=== PATIENT | male | born 1970 | race Hispanic/Latino ===

== ENCOUNTER 2019-10-11 12:30 | Emergency (ER) | payer SELFPAY ==
--- NOTE | 2019-10-11 14:19 | RAD REPORT ---
EXAM DESCRIPTION: RAD - Hand Right 3 View - 10/11/2019 2:13 pm CLINICAL HISTORY: PAIN COMPARISON: No comparisons FINDINGS: Comminuted fracture is present involving the distal phalanx of the thumb. No additional fr acture.
--- NOTE | 2019-10-11 14:31 | EDPHYS ---
Physician Documentation [facility] Name: Joel Ellison Age: 49 yrs Sex: Male : 1970 Arrival Date: 10/11/2019 Time: 12:31 Bed 15 Private MD: ED Physician Tim Urena HPI: 10/10 15:34 This 49 yrs old Male presents to ER via Ambulatory with complaints of Finger kb Injury. 15:34 The patient or guardian reports a contusion, pain, swelling, tenderness. The complaints kb affect the right thumb. Context: The problem was sustained at home, resulted from a crush injury, hammer. Onset: The symptoms/episode began/occurred 4 day(s) ago. Modifying factors: The symptoms are alleviated by nothing, the symptoms are aggravated by nothing. Associated signs and symptoms: The patient has no apparent associated signs or symptoms. Severity of symptoms: At their worst the symptoms were moderate, in the emergency department the symptoms are unchanged. The patient has not experienced similar symptoms in the past. The patient has not recently seen a physician. Pt reports he smashed his right thumb with a hammer 4 days ago. c/o swelling, pain and bruising. Historical: - Allergies: 12:43 No Known Allergies; hb - PSHx: 12:43 None; hb - Immunization history:: Adult Immunizations up to date. - Social history:: Smoking status: Patient denies any tobacco usage or history of. Patient uses alcohol, only on a social basis. Patient/guardian denies using street drugs. ROS: 15:33 Constitutional: Negative for fever, chills, and weight loss, Cardiovascular: Negative kb for chest pain, palpitations, and edema, Respiratory: Negative for shortness of breath, cough, wheezing, and pleuritic chest pain, Abdomen/GI: Negative for abdominal pain, nausea, vomiting, diarrhea, and constipation, Back: Negative for injury and pain, Neuro: Negative for headache, weakness, numbness, tingling, and seizure. 15:33 MS/extremity: Positive for ecchymosis, pain, swelling, tenderness, of the right thumb. Exam: 15:32 Constitutional: This is a well developed, well nourished patient who is awake, alert, kb and in no acute distress. Head/Face: Normocephalic, atraumatic. Chest/axilla: Normal chest wall appearance and motion. Nontender with no deformity. No lesions are appreciated. Cardiovascular: Regular rate and rhythm with a normal S1 and S2. No gallops, murmurs, or rubs. Normal PMI, no JVD. No pulse deficits. Respiratory: Lungs have equal breath sounds bilaterally, clear to auscultation and percussion. No rales, rhonchi or wheezes noted. No increased work of breathing, no retractions or nasal flaring. Abdomen/GI: Soft, non-tender, with normal bowel sounds. No distension or tympany. No guarding or rebound. No evidence of tenderness throughout. Neuro: Awake and alert, GCS 15, oriented to person, place, time, and situation. Cranial nerves II-XII grossly intact. Motor strength 5/5 in all extremities. Sensory grossly intact. Cerebellar exam normal. Normal gait. 15:32 Musculoskeletal/extremity: Extremities: grossly normal except: noted in the right thumb: contusion, ecchymosis, pain, swelling, tenderness, ROM: intact in all extremities, Circulation is intact in all extremities. Sensation intact. Nails: Subungual hematoma, of the right thumbnail. Vital Signs: 12:42 BP 149 / 90; Pulse 84; Resp 16; Temp 98.2; Pulse Ox 98% ; hb MDM: 12:54 Patient medically screened. kb 14:29 Data reviewed: vital signs, nurses notes. Data interpreted: Pulse oximetry: on room air kb is 98 %. Interpretation: normal. Counseling: I had a detailed discussion with the patient and/or guardian regarding: the historical points, exam findings, and any diagnostic results supporting the discharge/admit diagnosis, radiology results, the need for outpatient follow up, a orthopedic surgeon, to return to the emergency department if symptoms worsen or persist or if there are any questions or concerns that arise at home. 10/10 13:33 Order name: Hand Right 3 View XRAY; Complete Time: 14:24 kb 10/10 14:29 Order name: Finger Splint; Complete Time: 14:40 kb Administered Medications: No medications were administered Disposition: 15:22 Co-signature as Attending Physician, Tim Urena MD I agree with the assessment and kdr plan of care. Disposition: 10/11/19 14:30 Discharged to Home. Impression: Displaced fracture of distal phalanx of right thumb. - Condition is Stable. - Discharge Instructions: Finger Fracture, [id number]. - Prescriptions for Ibuprofen 800 mg Oral Tablet - take 1 tablet by ORAL route every 8 hours As needed take with food; 30 tablet. - Medication Reconciliation Form, Thank You Letter, Antibiotic Education, Prescription Opioid Use form. - Follow up: Emergency Department; When: As needed; Reason: Worsening of condition. Follow up: Private Physician; When: 2 - 3 days; Reason: Recheck today's complaints, Continuance of care, Re-evaluation by your physician. Signatures: Dispatcher [employer] EDMS Nirmala Denis, DIRECTOR OF STUDENT FINANCIAL SERVICES-C DIRECTOR OF STUDENT FINANCIAL SERVICES-Olga Bailey RN RN Tim Liu MD MD [facility] Alexandra Leon RN RN Corrections: (The following items were deleted from the chart) 15:18 14:30 10/11/2019 14:30 Discharged to Home. Impression: Displaced fracture of distal sv phalanx of right thumb. Condition is Stable. Forms are Medication Reconciliation Form, Thank You Letter, Antibiotic Education, Prescription Opioid Use. Follow up: Emergency Department; When: As needed; Reason: Worsening of condition. Follow up: Private Physician; When: 2 - 3 days; Reason: Recheck today's complaints, Continuance of care, Re-evaluation by your physician. kb
--- NOTE | 2019-10-11 14:31 | ER ---
Nurse's Notes [facility] Name: Joel Ellison Age: 49 yrs Sex: Male : 1970 Arrival Date: 10/11/2019 Time: 12:31 Bed 15 Private MD: Diagnosis: Displaced fracture of distal phalanx of right thumb Presentation: 10/10 12:42 Chief complaint: Patient states: Right hand 1st digit pain/swelling for 4 days. Hit hb with hammer. Risk Assessment: Do you want to hurt yourself or someone else? Patient reports no desire to harm self or others. 12:42 Method Of Arrival: Ambulatory hb 12:42 Acuity: MARLON 4 hb 12:55 Coronavirus screen: Proceed with normal triage. Patient denies a cough. Patient denies sv shortness of breath or difficulty breathing. Patient denies measured and/or subjective temperature greater than 100.4F prior to today's visit. Patient denies travel on a cruise ship or to a country the [facility] currently lists as an affected area. Patient denies contact with known and/or suspected case of COVID-19. Ebola Screen: No symptoms or risks identified at this time. Initial Sepsis Screen: Does the patient meet any 2 criteria? No. Patient's initial sepsis screen is negative. Does the patient have a suspected source of infection? Yes: Skin breakdown/wound. Onset of symptoms was October 07, 2019. Historical: - Allergies: 12:43 No Known Allergies; hb - PSHx: 12:43 None; hb - Immunization history:: Adult Immunizations up to date. - Social history:: Smoking status: Patient denies any tobacco usage or history of. Patient uses alcohol, only on a social basis. Patient/guardian denies using street drugs. Screenin:46 Abuse screen: Denies threats or abuse. Denies injuries from another. Nutritional sv screening: No deficits noted. Tuberculosis screening: No symptoms or risk factors identified. Fall Risk None identified. Assessment: 12:55 General: Appears in no apparent distress. uncomfortable, well developed, Behavior is sv calm, cooperative, appropriate for age. Pain: Complains of pain in right thumb. Neuro: Level of Consciousness is awake, alert, obeys commands, Oriented to person, place, time, situation, Moves all extremities. Full function Gait is steady. Respiratory: Airway is patent Respiratory effort is even, unlabored, Respiratory pattern is regular, symmetrical. Derm: Skin is intact, Skin is pink, warm \T\ dry. Musculoskeletal: Range of motion: limited in IP of right thumb Swelling present in right thumb. 14:00 Reassessment: Patient appears in no apparent distress at this time. Patient and/or sv family updated on plan of care and expected duration. Pain level reassessed. Patient is alert, oriented x 3, equal unlabored respirations, skin warm/dry/pink. 14:58 Reassessment: Pt waiting for xray films to come and then will be good to go home. sv 15:18 Reassessment: Patient appears in no apparent distress at this time. No changes from sv previously documented assessment. Patient and/or family updated on plan of care and expected duration. Pain level reassessed. Patient is alert, oriented x 3, equal unlabored respirations, skin warm/dry/pink. Vital Signs: 12:42 BP 149 / 90; Pulse 84; Resp 16; Temp 98.2; Pulse Ox 98% ; hb ED Course: 12:31 Patient arrived in ED. as 12:43 Triage completed. hb 12:46 Olga Ovalle, RN is Primary Nurse. sv 12:46 Arm band placed on. sv 12:46 Patient has correct armband on for positive identification. Bed in low position. Call sv light in reach. Door closed. Head of bed elevated. 12:54 Nirmala Denis FNP-C is [facility]. kb 12:54 Tim Urena MD is Attending Physician. kb 13:31 Nurse Practitioner and/or Physician Automatic Blocker to see patient. sv 14:00 X-ray(s) taken. sv 14:13 Hand Right 3 View XRAY In Process Unspecified. EDMS 14:40 Aluminum finger splint applied to palmar aspect of distal phalanx of right thumb. jp3 15:18 No provider procedures requiring assistance completed. Patient did not have IV access sv during this emergency room visit. Administered Medications: No medications were administered Outcome: 14:30 Discharge ordered by . kb 15:18 Patient left the ED. sv 15:18 Discharged to home ambulatory. sv 15:18 Condition: stable 15:18 Discharge instructions given to patient, Instructed on discharge instructions, follow up and referral plans. medication usage, splint care Demonstrated understanding of instructions, follow-up care, medications, splint care, Prescriptions given X 1. Signatures: Dispatcher [employer] Nirmala Muñoz, ORIC CRYPTOZOOLOGIST-Olga Bailey, RN Laura Shirley Heather, RN RN hb Pisarski, Jacob jp3 Corrections: (The following items were deleted from the chart) 12:45 12:42 Chief complaint: Patient states: Right hand 1st digit pain/swelling. [facility]
[2019-10-11 15:25] VITALS: BP 149/90; TEMP 98.2; O2SAT 98
== END 2019-10-11 15:18 | disposition home or self-care (01) ==
LOC: ER 12:30
DX: S62.521A Displaced fracture of distal phalanx of right thumb, initial encounter for closed fracture (principal); W22.8XXA Striking against or struck by other objects, initial encounter; Y93.89 Activity, other specified; Y92.9 Unspecified place or not applicable
CPT/HCPCS: 99283

== ENCOUNTER 2020-11-08 22:40 | Emergency (ER) | payer SELFPAY ==
[2020-11-09] MEDS ORDERED: LIDOCAINE 1% MPF 5 ML VIAL ONE (01:45)
--- NOTE | 2020-11-09 02:10 | EDPHYS ---
Physician Documentation [facility] Name: Joel Ellison Age: 50 yrs Sex: Male : 1970 Arrival Date: 11/08/2020 Time: 22:48 Bed 20 Private MD: ED Physician Marko Duran HPI: 11/09 02:01 This 50 yrs old Male presents to ER via Wheelchair with unknown complaint. pkl 02:01 The patient or guardian reports injury, a laceration, 2.5 cm(s), flap laceration. The pkl complaints affect the distal left index finger. Context: resulted from cut with kitchen knife. Onset: The symptoms/episode began/occurred 4 hour(s) ago. Associated signs and symptoms: The patient has no apparent associated signs or symptoms. Historical: - Allergies: 11/08 23:06 No Known Allergies; em - PMHx: 23:06 None; em - PSHx: 23:06 None; em - Immunization history:: Last tetanus immunization: unknown. - Social history:: Smoking status: Patient denies any tobacco usage or history of. ROS: 11/09 02:01 Eyes: Negative for injury, pain, redness, and discharge, ENT: Negative for injury, pkl pain, and discharge, Neck: Negative for injury, pain, and swelling, Cardiovascular: Negative for chest pain, palpitations, and edema, Respiratory: Negative for shortness of breath, cough, wheezing, and pleuritic chest pain, Abdomen/GI: Negative for abdominal pain, nausea, vomiting, diarrhea, and constipation, Back: Negative for injury and pain, : Negative for injury, bleeding, discharge, and swelling, Neuro: Negative for headache, weakness, numbness, tingling, and seizure. Skin: Positive for laceration(s), of the distal left index finger. Neuro: Negative for altered mental status. Exam: 02:01 Head/Face: Normocephalic, atraumatic. Eyes: Pupils equal round and reactive to light, pkl extra-ocular motions intact. Lids and lashes normal. Conjunctiva and sclera are non-icteric and not injected. Cornea within normal limits. Periorbital areas with no swelling, redness, or edema. ENT: Nares patent. No nasal discharge, no septal abnormalities noted. Tympanic membranes are normal and external auditory canals are clear. Oropharynx with no redness, swelling, or masses, exudates, or evidence of obstruction, uvula midline. Mucous membranes moist. Neck: Trachea midline, no thyromegaly or masses palpated, and no cervical lymphadenopathy. Supple, full range of motion without nuchal rigidity, or vertebral point tenderness. No Meningismus. Chest/axilla: Normal chest wall appearance and motion. Nontender with no deformity. No lesions are appreciated. Cardiovascular: Regular rate and rhythm with a normal S1 and S2. No gallops, murmurs, or rubs. Normal PMI, no JVD. No pulse deficits. Respiratory: Lungs have equal breath sounds bilaterally, clear to auscultation and percussion. No rales, rhonchi or wheezes noted. No increased work of breathing, no retractions or nasal flaring. Abdomen/GI: Soft, non-tender, with normal bowel sounds. No distension or tympany. No guarding or rebound. No evidence of tenderness throughout. Back: No spinal tenderness. No costovertebral tenderness. Full range of motion. Neuro: Awake and alert, GCS 15, oriented to person, place, time, and situation. Cranial nerves II-XII grossly intact. Motor strength 5/5 in all extremities. Sensory grossly intact. Cerebellar exam normal. Normal gait. 02:01 Musculoskeletal/extremity: Extremities: grossly normal except: noted in the distal left index finger: laceration. Vital Signs: 11/08 23:05 BP 133 / 71; Pulse 68; Resp 16; Temp 97.3; Pulse Ox 99% on R/A; em Laceration: 11/09 02:06 Wound Repair of 2.5cm ( 1.0in ) subcutaneous laceration to distal left index finger. pkl Skin/tissue flap noted.. Minimal bleeding noted.. Distal neuro/vascular/tendon intact. Anesthesia: Local anesthetic administered with 3 mls of 1% lidocaine. Wound prep: Extensive cleansing by me. Skin closed with 5 5-0 Prolene using simple sutures and sterile technique. Dressed with Neosporin, pressure dressing. Patient tolerated well. MDM: 01:02 Patient medically screened. pkl 02:06 Data reviewed: vital signs, nurses notes. pkl Administered Medications: 02:11 Drug: Tetanus-Diphtheria Toxoid Adult 0.5 ml {Co Founder: [employer]. Exp: jb4 07/09/2022. Lot #: [id number]. } Route: IM; Site: right deltoid; 02:11 Drug: KeFLEX (cephalexin) 500 mg Route: PO; jb4 02:11 Follow up: Response: Medication administered at discharge. jb4 Disposition Summary: 11/09/20 02:09 Discharge Ordered Location: Home pkl Problem: new pkl Symptoms: have improved pkl Condition: Stable pkl Diagnosis - Laceration distal left index finger pkl Followup: pkl - With: Private Physician - When: 1 week - Reason: Staple/Suture removal, Re-evaluation by your physician Discharge Instructions: - Discharge Summary Sheet pkl Forms: - Medication Reconciliation Form pkl - Thank You Letter pkl - Antibiotic Education pkl - Prescription Opioid Use pkl Prescriptions: - Keflex 750 mg Oral capsule - take 1 capsule by ORAL route 3 times per day for 7 days; 21 capsule; Refills: pkl 0, Product Selection Permitted Signatures: Marko Duran MD MD pkl Kiran Stokes, RN RN Deep Mcdaniel, MICHELLE RN jb4
--- NOTE | 2020-11-09 02:10 | ER ---
Nurse's Notes [facility] Name: Joel Ellison Age: 50 yrs Sex: Male : 1970 Arrival Date: 11/08/2020 Time: 22:48 Bed 20 Private MD: Diagnosis: Laceration distal left index finger Presentation: 11/08 23:05 Chief complaint: Patient states: cut left index finger with a knife about 4 hours ago, em tetanus is not up to date, no bleeding noted in triage. Coronavirus screen: Client denies travel out of the [place] in the last 14 days. Ebola Screen: Patient negative for fever greater than or equal to 101.5 degrees Fahrenheit, and additional compatible Ebola Virus Disease symptoms Patient denies exposure to infectious person. Patient denies travel to an Ebola-affected area in the 21 days before illness onset. No symptoms or risks identified at this time. Initial Sepsis Screen: Does the patient meet any 2 criteria? No. Patient's initial sepsis screen is negative. Does the patient have a suspected source of infection? No. Patient's initial sepsis screen is negative. Risk Assessment: Do you want to hurt yourself or someone else? Patient reports no desire to harm self or others. Onset of symptoms was November 08, 2020. 23:05 Method Of Arrival: Wheelchair em 23:05 Acuity: MARLON 4 em Historical: - Allergies: 23:06 No Known Allergies; em - PMHx: 23:06 None; em - PSHx: 23:06 None; em - Immunization history:: Last tetanus immunization: unknown. - Social history:: Smoking status: Patient denies any tobacco usage or history of. Screenin/19 01:59 Abuse screen: Denies threats or abuse. Nutritional screening: No deficits noted. em Tuberculosis screening: No symptoms or risk factors identified. Fall Risk None identified. Assessment: 11/08 23:05 General: Appears in no apparent distress. comfortable, Behavior is calm, cooperative, ca1 appropriate for age. Pain: Complains of pain in palmar aspect of distal phalanx of left index finger. Neuro: Level of Consciousness is awake, alert, obeys commands, Oriented to person, place, time, situation. Cardiovascular: Capillary refill < 3 seconds Patient's skin is warm and dry. Respiratory: Airway is patent Respiratory effort is even, unlabored, Respiratory pattern is regular, symmetrical. Derm: Skin is intact, is healthy with good turgor, Skin is pink, warm \T\ dry. Wound noted palmar aspect of distal phalanx of left index finger. Musculoskeletal: Capillary refill < 3 seconds, Range of motion: intact in all extremities. Vital Signs: 23:05 BP 133 / 71; Pulse 68; Resp 16; Temp 97.3; Pulse Ox 99% on R/A; em ED Course: 22:48 Patient arrived in ED. em 23:06 Triage completed. em 23:06 Arm band placed on. em 07 01:02 Marko Duran MD is Attending Physician. pkl 01:55 Assist provider with laceration repair on palmar aspect of distal phalanx of left index ca1 finger that was between 2.6 to 7.5 cm using sutures. Set up tray. Performed by Marko Duran MD Dressed with 4X4s, Neosporin, Patient tolerated well. 01:59 Kiran Stokes, RN is Primary Nurse. em 01:59 Patient has correct armband on for positive identification. em 02:22 Patient did not have IV access during this emergency room visit. ca1 Administered Medications: 02:11 Drug: Tetanus-Diphtheria Toxoid Adult 0.5 ml {Youth Specialist: [employer]. Exp: jb4 07/09/2022. Lot #: [id number]. } Route: IM; Site: right deltoid; 02:11 Drug: KeFLEX (cephalexin) 500 mg Route: PO; jb4 02:11 Follow up: Response: Medication administered at discharge. jb4 Outcome: 02:09 Discharge ordered by . pkl 02:21 Discharged to home ambulatory, with family. ca1 02:21 Condition: good 02:21 Discharge instructions given to patient, family, Instructed on discharge instructions, follow up and referral plans. medication usage, wound care, Demonstrated understanding of instructions, follow-up care, medications, wound care, Prescriptions given X 1. 02:22 Patient left the ED. ca1 Signatures: Marko Duran MD MD pkKiran Watson, RN RN em Deep Liu RN RN jb4 Elba Eller RN RN ca1
[2020-11-09] MEDS ORDERED: TETANUS & DIPHTHERIA TOX,ADULT 0.5 ML VIAL ONE (02:28)
[2020-11-09] MEDS ORDERED: CEPHALEXIN 250 MG CAP ONE (02:28)
[2020-11-09 02:30] VITALS: BP 133/71; TEMP 97.3; O2SAT 99
== END 2020-11-09 02:22 | disposition home or self-care (01) ==
LOC: ER 22:40
PROC: 0JQK0ZZ Repair Left Hand Subcutaneous Tissue and Fascia, Open Approach (ICD-10-PCS; principal; 2020-11-09)
DX: S61.211A Laceration without foreign body of left index finger without damage to nail, initial encounter (principal); W26.0XXA Contact with knife, initial encounter; Y92.009 Unspecified place in unspecified non-institutional (private) residence as the place of occurrence of the external cause; Z23 Encounter for immunization
CPT/HCPCS: 90471; 90714; 99283

== ENCOUNTER 2021-02-19 10:12 | Emergency (ER) | payer SELFPAY ==
--- NOTE | 2021-02-19 11:50 | RAD REPORT ---
EXAM DESCRIPTION: CT - Thorax Wo Con - 02/19/2021 10:48 am CLINICAL HISTORY: fall, trauma COMPARISON: No comparisons FINDINGS: Chest Wall: No suspicious thyroid nodules or pathologic lymphadenopathy. Lungs: No acute abnormality. Pleura: No significant effusions or pneumothorax. Mediastinum/constantine: No pathologic lymphadenopathy. Pulmonary arteries/Aorta: Limited evaluation without contrast. No aortic aneurysm. Heart: No significant pericardial effusion. Normal heart size. Upper abdomen: Hepatic steatosis Bones: Nondisplaced sternal fracture at the mid sternum. All CT scans are performed using dose optimization technique as appropriate and may include automated exposure control or mA/KV adjustment according to patient size. IMPRESSION: Nondisplaced sternal fracture. No significant retrosternal hematoma or pericardial effus ion. No pneumothorax.
--- NOTE | 2021-02-19 12:44 | EDPHYS ---
Physician Documentation [facility] Name: Joel Ellison Age: 50 yrs Sex: Male : 1970 Arrival Date: 02/19/2021 Time: 10:15 Bed 14 Private MD: ED Physician Cameron Mora HPI: 02/19 10:36 This 50 yrs old Male presents to ER via Ambulatory with complaints of Fall jmm Injury, Chest Pain From Injury. 10:36 Details of fall: The patient fell from a height, from a ladder. Onset: The jmm symptoms/episode began/occurred acutely, 3 day(s) ago. Associated injuries: The patient sustained injury to the chest, contusion. The patient has not experienced similar symptoms in the past. Patient states that he fell off a ladder hitting his chest against a block of wood. Denies hitting his head, denies shortness of breath, chest pain, abdominal pain, vomiting, back pain.. Historical: - Allergies: 10:20 No Known Allergies; ll1 - PMHx: 10:31 None; ll1 - PSHx: 10:31 None; ll1 - Immunization history:: Adult Immunizations up to date. - Social history:: Smoking status: Patient denies any tobacco usage or history of. - Immunization history: Last tetanus immunization: unknown. ROS: 10:36 Constitutional: Negative for fever, chills, and weight loss, Cardiovascular: Negative jmm for chest pain, palpitations, and edema, Respiratory: Negative for shortness of breath, cough, wheezing, and pleuritic chest pain, Back: Negative for injury and pain, Neuro: Negative for headache, weakness, numbness, tingling, and seizure. 10:36 All other systems are negative. Exam: 10:36 Constitutional: This is a well developed, well nourished patient who is awake, alert, jmm and in no acute distress. Head/Face: atraumatic. Eyes: EOMI, no conjunctival erythema appreciated ENT: Moist Mucus Membranes Neck: Trachea midline, Supple 10:36 Cardiovascular: Regular rate and rhythm. No edema appreciated Respiratory: Normal respirations, no respiratory distress appreciated Abdomen/GI: Non distended, soft Back: Normal ROM Skin: General appearance color normal MS/ Extremity: Moves all extremities, no obvious deformities appreciated, no edema noted to the lower extremities Neuro: Awake and alert, normal gait Psych: Behavior is normal, Mood is normal, Patient is cooperative and pleasant 10:36 Chest/axilla: Palpation: tenderness, that is moderate, of the mid-sternal area. Vital Signs: 10:20 Resp 17; ll1 10:30 BP 183 / 98; Pulse 74; Temp 98.3; Pulse Ox 97% ; ll1 13:02 BP 171 / 83; Pulse 70; Resp 18; Pulse Ox 99% on R/A; jt3 [place] Coma Score: 10:39 Eye Response: spontaneous(4). Verbal Response: oriented(5). Motor Response: obeys jt3 commands(6). Total: 15. Trauma Score (Adult): 10:39 Eye Response: spontaneous(1); Verbal Response: oriented(1); Motor Response: obeys jt3 commands(2); Systolic BP: > 89 mm Hg(4); Respiratory Rate: 10 to 29 per min(4); [place] Score: 15; Trauma Score: 12 MDM: 10:42 Patient medically screened. [facility] 12:42 Data reviewed: vital signs, nurses notes. Counseling: I had a detailed discussion with mari the patient and/or guardian regarding: the historical points, exam findings, and any diagnostic results supporting the discharge/admit diagnosis, radiology results, the need for outpatient follow up, to return to the emergency department if symptoms worsen or persist or if there are any questions or concerns that arise at home. 02/19 10:35 Order name: CT Chest Wo Con; Complete Time: 11:51 [facility] Administered Medications: No medications were administered Disposition Summary: 02/19/21 12:43 Discharge Ordered Location: Home [facility] Condition: Stable [facility] Diagnosis - Fracture of body of sternum, initial encounter for closed fracture [facility] Followup: [facility] - With: Private Physician - When: 2 - 3 days - Reason: Recheck today's complaints, Continuance of care, Re-evaluation by your physician Discharge Instructions: - Discharge Summary Sheet [facility] - Sternal Fracture [facility] Forms: - Medication Reconciliation Form [facility] - Thank You Letter [facility] - Antibiotic Education [facility] - Prescription Opioid Use [facility] Prescriptions: - Ultracet 37.5-325 mg Oral Tablet - take 1 tablet by ORAL route every 6 hours - for up to 5 days; do not exceed 8 jmm tablets per day.; 20 tablet; Refills: 0, Product Selection Permitted Addendum: 02/22/2021 22:57 Co-signature as Attending Physician, Cameron Mora MD. m a2 Signatures: Dispatcher [employer] Vincent Garcia PA PA jmm Alzahri, Mohammad, MD MD ma2 Brennan Hearn RN RN ll1 Sahil Cee RN RN jt3
--- NOTE | 2021-02-19 12:44 | ER ---
Nurse's Notes [facility] Name: Joel Ellison Age: 50 yrs Sex: Male : 1970 Arrival Date: 02/19/2021 Time: 10:15 Bed 14 Private MD: Diagnosis: Fracture of body of sternum, initial encounter for closed fracture Presentation: 02/19 10:20 Chief complaint: Patient states: Fell from a ladder 3 days ago. Hit chest on cabinet. ll1 CP since. No head injury or trauma. Coronavirus screen: Client denies travel out of the [place] in the last 14 days. Ebola Screen: Patient denies travel to an Ebola-affected area in the 21 days before illness onset. Initial Sepsis Screen: Does the patient meet any 2 criteria? No. Patient's initial sepsis screen is negative. Does the patient have a suspected source of infection? Yes: Bone or joint infection. Risk Assessment: Do you want to hurt yourself or someone else? Patient reports no desire to harm self or others. Onset of symptoms was February 16, 2021. 10:20 Method Of Arrival: Ambulatory ll1 10:20 Acuity: MARLON 4 ll1 13:00 Care prior to arrival: None. Mechanism of Injury: No Mechanism of Injury. jt3 Historical: - Allergies: 10:20 No Known Allergies; ll1 - PMHx: 10:31 None; ll1 - PSHx: 10:31 None; ll1 - Immunization history:: Adult Immunizations up to date. - Social history:: Smoking status: Patient denies any tobacco usage or history of. - Immunization history: Last tetanus immunization: unknown. Screenin:39 Abuse screen: Denies threats or abuse. Denies injuries from another. Tuberculosis jt3 screening: No symptoms or risk factors identified. 13:00 Nutritional screening: No deficits noted. Fall Risk None identified. jt3 Primary Survey: 10:39 NO uncontrolled hemorrhage observed. A: Airway: patent. Breathing/Chest: Respiratory jt3 pattern: regular. Circulation: Skin temperature: warm, dry. Disability Alert. Exposure/Environment: A warming method has been applied: A warm blanket has been provided to the patient. 13:00 Reassessment Breathing/Chest Respiratory pattern Regular. jt3 13:00 Reassessment Airway Airway Patent. jt3 Assessment: 10:39 General: Appears in no apparent distress. Behavior is calm, cooperative. Pain: jt3 Complains of pain in chest Pain does not radiate. Pain currently is 5 out of 10 on a pain scale. Quality of pain is described as throbbing, Pain began 2-3 days ago. Musculoskeletal: Pt. reports upper bilateral rib pain after falling down 5 stairs on hitting his chest on piece of wood. Denies LOC or hitting his head. Bruising noticed to sternum. Pt. alert and oriented x4 and endorses pain with coughing. Vital Signs: 10:20 Resp 17; ll1 10:30 BP 183 / 98; Pulse 74; Temp 98.3; Pulse Ox 97% ; ll1 13:02 BP 171 / 83; Pulse 70; Resp 18; Pulse Ox 99% on R/A; jt3 [place] Coma Score: 10:39 Eye Response: spontaneous(4). Verbal Response: oriented(5). Motor Response: obeys jt3 commands(6). Total: 15. Trauma Score (Adult): 10:39 Eye Response: spontaneous(1); Verbal Response: oriented(1); Motor Response: obeys jt3 commands(2); Systolic BP: > 89 mm Hg(4); Respiratory Rate: 10 to 29 per min(4); [place] Score: 15; Trauma Score: 12 ED Course: 10:15 Patient arrived in ED. am2 10:17 Vincent Bonilla PA is PHCP. jmm 10:17 Cameron Mora MD is Attending Physician. jmm 10:20 Arm band placed on Patient placed in an exam room, on a stretcher. ll1 10:21 Triage completed. ll1 10:23 Sahil Cee, MICHELLE is Primary Nurse. jt3 10:39 Patient has correct armband on for positive identification. Bed in low position. Call jt3 light in reach. Side rails up X2. 10:39 Patient maintains SpO2 saturation greater than 95% on room air. jt3 10:48 CT Chest Wo Con In Process Unspecified. EDMS 12:59 No provider procedures requiring assistance completed. IV discontinued. jt3 13:01 Thermoregulation: warm blanket given to patient. jt3 Administered Medications: No medications were administered Intake: 10:39 PO: 0ml; IV: 0ml; Total: 0ml. jt3 Output: 10:39 Urine: 0ml; Total: 0ml. jt3 Outcome: 12:43 Discharge ordered by . mariella 12:59 Discharged to home ambulatory. jt3 12:59 Condition: good 12:59 Discharge instructions given to patient. jt3 13:00 Patient's length of stay was not longer than 2 hours. jt3 13:04 Patient left the ED. jt3 Signatures: Dispatcher [employer] EDMS Vincent Bonilla PA PA jmm Moreno, Amanda am2 Brennan Hearn, RN RN ll1 Sahil Cee RN RN jt3 Corrections: (The following items were deleted from the chart) 13:02 13:01 BP 171 / 83; Pulse 16bpm; Resp 70bpm; Pulse Ox 99% RA; jt3 jt3
[2021-02-19 13:14] VITALS: TEMP 98.3
[2021-02-19 13:15] VITALS: BP 171/83; O2SAT 99
== END 2021-02-19 13:04 | disposition home or self-care (01) ==
LOC: ER 10:12
DX: S22.22XA Fracture of body of sternum, initial encounter for closed fracture (principal); W11.XXXA Fall on and from ladder, initial encounter
CPT/HCPCS: 71250; 99284

== ENCOUNTER 2023-02-08 11:02 | Inpatient (IN) | payer SELFPAY ==
[2023-02-08] MEDS ORDERED: DIAZEPAM 10 MG/2 ML INJ SYRINGE ONE (11:36)
[2023-02-08 11:50] LABS: Absolute Lymphocytes (CBC) 0.6 K/uL (0.7-4.9); Hematocrit 39.8 % (39.6-49.0); Lymphocytes % 9.6 % (15.3-44.8); MCV 101.9 fL (80-100); MPV 8.3 fL (7.6-11.3); Platelets 168 thou/uL (152-406)
[2023-02-08 12:08] LABS: Albumin 3.6 g/dL (3.4-5.0); Bilirubin Total 1.2 mg/dL (0.2-1.0); Magnesium 1.9 mg/dL (1.6-2.4); Potassium 3.3 mEq/L (3.5-5.1); Protein, Total 9.2 g/dL (6.4-8.2); Troponin High Sensitivity 18.3 pg/mL (<58.9)
--- NOTE | 2023-02-08 12:14 | RAD REPORT ---
EXAM DESCRIPTION: CT - CTHCSPWOC - 02/08/2023 11:20 am CLINICAL HISTORY: Trauma, head and neck injury. SEIZURE COMPARISON: No comparisons TECHNIQUE: Axial 5 mm thick images of the head were obtained. Axial 2 mm thick images of the cervical spine were obtained with sagittal and coronal reconstruction images generated and reviewed. All CT scans are performed using dose optimization technique as appropriate and may include automated exposure control or mA/KV adjustment according to patient size. FINDINGS: CT HEAD WITHOUT CONTRAST: No acute hemorrhage, hydrocephalus or extra-axial collection is identified.Small calcifications noted .No areas of brain edema or midline shift. The paranasal sinuses and mastoids are clear.The calvarium is intact. CT CERVICAL SPINE WITHOUT CONTRAST: No fracture or subluxation.Moderate spondylosis C4-5.No prevertebral soft tissues swelling is identif ied. 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 Moderate C4-5 spondylosis.
--- NOTE | 2023-02-08 12:18 | RAD REPORT ---
EXAM DESCRIPTION: RAD - Chest Single View - 02/08/2023 11:27 am CLINICAL HISTORY: seizure Chest pain. COMPARISON: No comparisons FINDINGS: Portable technique limits examination quality. The lungs are grossly clear. The heart is normal in size. No displaced fractures. IMPRESSION: No acute intrathoracic process suspected.
--- NOTE | 2023-02-08 14:10 | EDPHYS ---
Physician Documentation [facility] Name: Joel Ellison Age: 52 yrs Sex: Male : 1970 Arrival Date: 02/08/2023 Time: 11:02 Bed 14 Private MD: ED Physician Kenneth Boucher HPI: 02/08 12:01 This 52 yrs old Male presents to ER via EMS with complaints of ETOH Abuse. rt 12:01 Patient with history of alcohol abuse last having alcohol about 2 to 3 days ago rt presents to the ED with fall at a store with reported 3-minute long seizure. The seizure stopped spontaneously, EMS was called. Patient states that he feels fine, has no complaints and is reportedly at baseline. Denies other acute complaints at this time, symptoms are moderate severity, no other aggravating or alleviating factors.. Historical: - Allergies: 11:12 No Known Allergies; iw - Social history:: Smoking status: unknown Patient uses alcohol, on a daily basis. - Family history:: not pertinent. ROS: 12:01 Constitutional: Negative for fever, chills, and weight loss, Cardiovascular: Negative rt for chest pain, palpitations, and edema, Respiratory: Negative for shortness of breath, cough, wheezing, and pleuritic chest pain, Abdomen/GI: Negative for abdominal pain, nausea, vomiting, diarrhea, and constipation, MS/Extremity: Negative for injury and deformity, Skin: Negative for injury, rash, and discoloration, Psych: Negative for depression, anxiety, suicide ideation, homicidal ideation, and hallucinations, 12:01 Neuro: Positive for seizure activity, Negative for altered mental status, Exam: 12:01 Constitutional: This is a well developed, well nourished patient who is awake, alert, rt and in no acute distress. Head/Face: Normocephalic, atraumatic. Chest/axilla: Normal chest wall appearance and motion. Nontender with no deformity. No lesions are appreciated. Cardiovascular: Regular rate and rhythm with a normal S1 and S2. No gallops, murmurs, or rubs. Normal PMI, no JVD. No pulse deficits. Respiratory: Lungs have equal breath sounds bilaterally, clear to auscultation and percussion. No rales, rhonchi or wheezes noted. No increased work of breathing, no retractions or nasal flaring. Abdomen/GI: Soft, non-tender, with normal bowel sounds. No distension or tympany. No guarding or rebound. No evidence of tenderness throughout. Back: No spinal tenderness. No costovertebral tenderness. Full range of motion. Neuro: Awake and alert, GCS 15, oriented to person, place, time, and situation. Cranial nerves II-XII grossly intact. Motor strength 5/5 in all extremities. Sensory grossly intact. Cerebellar exam normal. Normal gait. Psych: Awake, alert, with orientation to person, place and time. Behavior, mood, and affect are within normal limits. 12:01 ECG was reviewed by the Attending Physician. Vital Signs: 11:09 BP 166 / 105; Pulse 102; Resp 16; Temp 98; Pulse Ox 99% on R/A; iw 11:50 BP 150 / 98; Pulse 98; Resp 16 S; Pulse Ox 99% on R/A; Pain 0/10; kc6 12:40 BP 137 / 92; Pulse 92; Resp 20 S; Pulse Ox 97% on R/A; kc6 13:20 BP 141 / 86; Pulse 88; Resp 16 S; Pulse Ox 95% on R/A; kc6 14:25 BP 136 / 92; Pulse 90; Resp 14 S; Pulse Ox 98% on R/A; kc6 15:30 BP 127 / 87; Pulse 85; Resp 20 S; Pulse Ox 99% on R/A; kc6 16:37 BP 134 / 80; Pulse 84; Resp 15 S; Pulse Ox 99% on R/A; kc6 17:37 BP 128 / 78; Pulse 83; Resp 13 S; Pulse Ox 98% on R/A; kc6 19:40 BP 115 / 90; Pulse 81; Resp 17; Temp 98.1; Pulse Ox 98% ; rv 11:50 Pain Scale: Adult kc6 Lacey Coma Score: 19:40 Eye Response: spontaneous(4). Motor Response: obeys commands(6). Verbal Response: rv oriented(5). Total: 15. MDM: 11:05 Patient medically screened. rt 14:10 Differential Diagnosis Seizure, syncope, alcohol withdrawal seizure, electrolyte rt disturbance. Data reviewed: vital signs, nurses notes, lab test result(s), EKG, radiologic studies. Consideration of Admission/Observation Patient was admitted/placed on observation. Management of patient was discussed with the following: Hospitalist: Agrees to admit. I considered the following discharge prescriptions or medication management in the emergency department Medications were administered in the Emergency Department. See MAR. Independent interpretation of the following test(s) in the Emergency Department CT Scan: My interpretation is No hemorrhage seen on interpretation of CT scan images. Counseling: I had a detailed discussion with the patient and/or guardian regarding the historical points, exam findings, and any diagnostic results supporting the discharge/admit diagnosis, lab results, radiology results, the need for further work-up and treatment in the hospital. Response to treatment: the patient's symptoms have markedly improved after treatment. 02/08 11:07 Order name: CBC with Diff; Complete Time: 12:17 rt 02/08 11:07 Order name: CMP; Complete Time: 12:17 rt 02/08 11:07 Order name: ETOH Level; Complete Time: 12:17 rt 02/08 11:07 Order name: Magnesium; Complete Time: 12:17 rt 02/08 11:07 Order name: Troponin High Sensitivity; Complete Time: 12:17 rt 02/08 11:07 Order name: CPK; Complete Time: 12:17 rt 02/08 11:07 Order name: CT Head C Spine; Complete Time: 12:17 rt 02/08 11:07 Order name: Chest Single View XRAY; Complete Time: 12:18 rt 02/08 11:07 Order name: EKG; Complete Time: 11:08 rt 02/08 11:07 Order name: EKG - Nurse/Tech; Complete Time: 11:45 rt EC:01 Rate is 93 beats/min. Rhythm is regular, Normal Sinus Rhythm with No ectopy, LVH rt present. QRS Andrews is Normal. [place] interval is normal. QRS interval is normal. QT interval is normal. No Q waves. Administered Medications: 11:46 Drug: Diazepam IVP 10 mg IVP once Route: IVP; Site: right antecubital; kc6 12:39 Follow up: Response: No adverse reaction; Anxiety decreased; RASS: Alert and Calm (0) kc6 14:35 Drug: Banana Bag - (Multivitamin IV 1 amp, NS 0.9% IV 1000 ml, Thiamine IV 100 mg, kc6 foLIC Acid IVPB 1 mg) IV at calculated rate once Route: IV; Rate: calculated rate; Site: right antecubital; 17:38 Follow up: Response: No adverse reaction; IV Status: Completed infusion; IV Intake: kc6 1000ml Disposition Summary: 02/08/23 14:10 Hospitalization Ordered Notes: Hospitalization Status: Inpatient Admission rt Provider: Conor Pena rt Condition: Fair rt Problem: new rt Symptoms: have improved rt Bed/Room Type: Standard rt Location: Intensive Care Unit(02/08/23 19:24) Room Assignment: 1-(02/08/23 19:24) Diagnosis - Alcohol withdrawal seizure rt Forms: - Medication Reconciliation Form rt - SBAR form rt - Leadership Thank You Letter rt Signatures: Dispatcher [employer] Coretta Mcclellan RN RN kl Williams, Irene, RN RN iw Campbell, Kaitlyn, RN RN kc6 Kenneth Boucher MD MD rt Corrections: (The following items were deleted from the chart) 19:24 14:10 Telemetry/MedSurg (Inpatient) rt kl 19:24 14:10 rt kl
--- NOTE | 2023-02-08 14:10 | ER ---
Nurse's Notes [facility] Name: Joel Ellison Age: 52 yrs Sex: Male : 1970 Arrival Date: 02/08/2023 Time: 11:02 Bed 14 Private MD: Diagnosis: Alcohol withdrawal seizure Presentation: 02/08 11:09 Chief complaint: EMS states: toned out to [employer] for possible seizure, iw bystanders reports they heard a thud and then found pt on floor with seizure like behavior, pt stopped drinking on Monday , normally drinks at least 10 beers daily, pt states he remembers everything that happened, states he gets shaky if he stops drinking. Coronavirus screen: At this time, the client does not indicate any symptoms associated with coronavirus-19. Ebola Screen: Patient negative for fever greater than or equal to 101.5 degrees Fahrenheit, and additional compatible Ebola Virus Disease symptoms Patient denies exposure to infectious person. Patient denies travel to an Ebola-affected area in the 21 days before illness onset. No symptoms or risks identified at this time. Initial Sepsis Screen: Does the patient meet any 2 criteria? No. Patient's initial sepsis screen is negative. Does the patient have a suspected source of infection? No. Patient's initial sepsis screen is negative. Risk Assessment: Do you want to hurt yourself or someone else? Patient reports no desire to harm self or others. Onset of symptoms was February 08, 2023. 11:09 Method Of Arrival: EMS: [facility] iw 11:09 Acuity: MARLON 2 iw Historical: - Allergies: 11:12 No Known Allergies; iw - Social history:: Smoking status: unknown Patient uses alcohol, on a daily basis. - Family history:: not pertinent. Screenin:09 [facility] ED Fall Risk Assessment (Adult) History of falling in the last 3 months, kc6 including since admission No falls in past 3 months (0 pts) Confusion or Disorientation No (0 pts) Intoxicated or Sedated No (0 pts) Impaired Gait No (0 pts) Mobility Assist Device Used No (0 pt) Altered Elimination No (0 pt) Score/Fall Risk Level 0 - 2 = Low Risk. Abuse screen: Denies threats or abuse. Denies injuries from another. Nutritional screening: No deficits noted. Tuberculosis screening: No symptoms or risk factors identified. 19:41 Clinical [place] Withdrawal Assessment for Alcohol, revised (CIWA-Ar): rv Nausea/Vomitin - No nausea or vomiting Headache: 0 - Not present Paroxysmal Sweats: 0 - No sweats visible Anxiety: 0 - No anxiety, at ease Agitation: 0 - Normal actiivty Tremor: 4 - Moderate when client's hands extended Auditory Disturbances: 0 - Not present Visual Disturbances: 0 - Not present Tactile Disturbances: 0 - None Orientation and Clouding of Sensorium: 0 - Oriented and can do serial additions Total Score: < 10 Very mild withdrawal. Assessment: 11:30 General: Appears in no apparent distress. comfortable, Behavior is calm, cooperative, kc6 appropriate for age, anxious. Pain: Denies pain. Neuro: Level of Consciousness is awake, alert, obeys commands, Oriented to person, place, time, situation, Appropriate for age. Cardiovascular: Denies chest pain, Capillary refill < 3 seconds. Respiratory: Airway is patent Trachea midline Respiratory effort is even, unlabored, Respiratory pattern is regular, symmetrical, Denies shortness of breath. GI: No signs and/or symptoms were reported involving the gastrointestinal system. : No signs and/or symptoms were reported regarding the genitourinary system. EENT: No signs and/or symptoms were reported regarding the EENT system. Derm: No signs and/or symptoms reported regarding the dermatologic system. Skin is intact, is healthy with good turgor, Skin is pink, warm \\T\\ dry. Musculoskeletal: No signs and/or symptoms reported regarding the musculoskeletal system. Circulation, motion, and sensation intact. Capillary refill < 3 seconds, Range of motion: intact in all extremities. 12:30 Reassessment: Patient appears in no apparent distress at this time. No changes from kc6 previously documented assessment. Patient and/or family updated on plan of care and expected duration. Pain level reassessed. Patient is alert, oriented x 3, equal unlabored respirations, skin warm/dry/pink. 13:20 Reassessment: Patient appears in no apparent distress at this time. No changes from kc6 previously documented assessment. Patient and/or family updated on plan of care and expected duration. Pain level reassessed. Patient is alert, oriented x 3, equal unlabored respirations, skin warm/dry/pink. 14:25 Reassessment: Patient appears in no apparent distress at this time. No changes from kc6 previously documented assessment. Patient and/or family updated on plan of care and expected duration. Pain level reassessed. Patient is alert, oriented x 3, equal unlabored respirations, skin warm/dry/pink. 15:30 Reassessment: Patient appears in no apparent distress at this time. No changes from kc6 previously documented assessment. Patient and/or family updated on plan of care and expected duration. Pain level reassessed. Patient is alert, oriented x 3, equal unlabored respirations, skin warm/dry/pink. 16:30 Reassessment: Patient appears in no apparent distress at this time. No changes from kc6 previously documented assessment. Patient and/or family updated on plan of care and expected duration. Pain level reassessed. Patient is alert, oriented x 3, equal unlabored respirations, skin warm/dry/pink. 17:30 Reassessment: Patient appears in no apparent distress at this time. No changes from kc6 previously documented assessment. Patient and/or family updated on plan of care and expected duration. Pain level reassessed. Patient is alert, oriented x 3, equal unlabored respirations, skin warm/dry/pink. Psych: 11:30 [place] Suicide Severity Screening: In the past month, have you wished you were kc6 or wished you could go to sleep and not wake up? Patient responds "No." "In the past month, have you actually had any thoughts of killing yourself?" Patient responds "no." "In your lifetime, have you ever done anything, started to do anything, or prepared to do anything to end your life?" Patient responds "no.". Subjective: Patient's mood is anxious but pleasant Delusions are denied, Hallucinations are denied. Objective: Patient is cooperative, Speech is normal, Affect is appropriate. Interventions: Patient placed in hospital gown. Searched person for dangerous items. Safety Checks: Personal items have not been removed. Door is open. No visitors are present at this time. Patient uses 10 of beer, daily. Last use was 2 days ago. Patient does not have a history of DTs. Commitment: not suicidal or homicidal at this time. Vital Signs: 11:09 BP 166 / 105; Pulse 102; Resp 16; Temp 98; Pulse Ox 99% on R/A; iw 11:50 BP 150 / 98; Pulse 98; Resp 16 S; Pulse Ox 99% on R/A; Pain 0/10; kc6 12:40 BP 137 / 92; Pulse 92; Resp 20 S; Pulse Ox 97% on R/A; kc6 13:20 BP 141 / 86; Pulse 88; Resp 16 S; Pulse Ox 95% on R/A; kc6 14:25 BP 136 / 92; Pulse 90; Resp 14 S; Pulse Ox 98% on R/A; kc6 15:30 BP 127 / 87; Pulse 85; Resp 20 S; Pulse Ox 99% on R/A; kc6 16:37 BP 134 / 80; Pulse 84; Resp 15 S; Pulse Ox 99% on R/A; kc6 17:37 BP 128 / 78; Pulse 83; Resp 13 S; Pulse Ox 98% on R/A; kc6 19:40 BP 115 / 90; Pulse 81; Resp 17; Temp 98.1; Pulse Ox 98% ; rv 11:50 Pain Scale: Adult kc6 [place] Coma Score: 19:40 Eye Response: spontaneous(4). Motor Response: obeys commands(6). Verbal Response: rv oriented(5). Total: 15. ED Course: 11:05 Patient arrived in ED. kc6 11:05 Kenneth Boucher MD is Attending Physician. rt 11:09 Patient has correct armband on for positive identification. Placed in gown. Bed in low kc6 position. Call light in reach. Side rails up X2. Client placed on continuous cardiac and pulse oximetry monitoring. NIBP monitoring applied. electronic device monitor on. 11:09 Maintain EMS IV. Dressing intact. Good blood return noted. Site clean \\T\\ dry. Gauge \\T\\ lamine 6 site: 18G RAC. 11:09 Patient maintains SpO2 saturation greater than 95% on room air. kc6 11:11 Triage completed. iw 11:12 Arm band placed on. iw 11:15 Anuja Hernandez, MICHELLE is Primary Nurse. kc6 11:21 CT Head C Spine In Process Unspecified. EDMS 11:27 Chest Single View XRAY In Process Unspecified. EDMS 14:09 Conor Pena is Hospitalizing Provider. rt 19:37 No provider procedures requiring assistance completed. Patient admitted, IV remains in rv place. Administered Medications: 11:46 Drug: Diazepam IVP 10 mg IVP once Route: IVP; Site: right antecubital; kc6 12:39 Follow up: Response: No adverse reaction; Anxiety decreased; RASS: Alert and Calm (0) kc6 14:35 Drug: Banana Bag - (Multivitamin IV 1 amp, NS 0.9% IV 1000 ml, Thiamine IV 100 mg, kc6 foLIC Acid IVPB 1 mg) IV at calculated rate once Route: IV; Rate: calculated rate; Site: right antecubital; 17:38 Follow up: Response: No adverse reaction; IV Status: Completed infusion; IV Intake: kc6 1000ml Medication: 19:39 VIS not applicable for this client. rv Intake: 17:38 IV: 1000ml; Total: 1000ml. kc6 Outcome: 14:10 Decision to Hospitalize by Provider. rt 19:38 Admitted to ICU accompanied by tech, via wheelchair, room icu 1, with chart, Report rv called to ANNEMARIE MARTINEZ 19:38 Condition: good 19:38 Instructed on the need for admit, 19:41 Patient left the ED. rv Signatures: Dispatcher [employer] Zully Andrew, Mik Contreras RN, RN RN rv Campbell, Kaitlyn, RN RN kc6 Kenneth Boucher MD MD rt
[2023-02-08] MEDS ORDERED: NA CHLORIDE 0.9% 1,000 ML with THIAMINE HCL 100 MG, FOLIC ACID 1 MG, MULTIVITAMINS INJ ... IV SCH ×4 (14:30)
--- NOTE | 2023-02-08 18:09 | P.HP ---
Certification for Inpatient Patient admitted to: Observation With expected LOS: <2 Midnights Practitioner: I am a practitioner with admitting privileges, knowledge of patient current condition, hospital course, and medical plan of care. Services: Services provided to patient in accordance with Admission requirements found in Title 42 Section 412.3 of the Code of Federal Regulations Patient History Date of Service: 02/08/23 Reason for admission: Suspected seizures History of Present Illness: 52-year-old gentleman with a history of chronic alcoholisms was brought to the emergency department because of suspected seizure witnessed by bystanders in a [employer] store. According to report patient had a 3-minute seizure which stopped spontaneously. EMS was called and patient brought to the emergency department. Patient admitted that he drinks beer every day, about 10-12 bottles per day. He reports tremors if he does not drink alcohol. Patient denies any history of seizures. He was alert and oriented during my examination in the ED. Blood work shows hyponatremia and elevated LFT. Patient is hospitalized for further management. Allergies No Known Allergies Allergy (Unverified 02/23/21 08:44) - Past Medical/Surgical History -: Chronic alcoholism - Family History Mother -: Diabetes - Social History Smoking Status: Former smoker Alcohol use: Yes CD- Drugs: No Place of Residence: Home Review of Systems Other: Patient denied any headache, denied any blurry vision, denied any chest pain or palpitation or shortness of breath. Except as documented, all other systems reviewed and negative. Physical Examination - Physical Exam General: Alert, In no apparent distress, Oriented x3 HEENT: PERRLA, Mucous membr. moist/pink, Sclerae nonicteric Neck: Supple, JVD not distended Respiratory: Clear to auscultation bilaterally, Normal air movement Cardiovascular: No edema, Regular rate/rhythm, Normal S1 S2 Gastrointestinal: Normal bowel sounds, Soft and benign, Non-distended, No tenderness Musculoskeletal: No swelling Integumentary: No rashes, No cyanosis Neurological: Normal strength at 5/5 x4 extr, Cranial nerves 3-12 intact Lymphatics: No axilla or inguinal lymphadenopathy - Studies Laboratory Data (last 24 hrs) 02/08/23 02/08/23 11:39 11:39 WBC 5.70 Hgb 13.8 Hct 39.8 Plt Count 168 Sodium 132 L Potassium 3.3 L BUN 12 Creatinine 0.75 Glucose 149 H Magnesium 1.9 Total Bilirubin 1.2 H AST 76 H ALT 40 Alkaline Phosphatase 155 H Assessment and Plan - Problems (Diagnosis) (1) Alcohol related seizure Current Visit: Yes Status: Acute (2) Chronic alcoholism Current Visit: Yes Status: Acute (3) Hyponatremia Current Visit: Yes Status: Acute (4) Elevated LFTs Current Visit: Yes Status: Acute - Plan Place patient under observation Supportive measures with IV fluid-banana bag Patient with hand tremors denoting impending alcohol withdrawal Start CIWA Ativan IV as needed for seizures Isotonic fluid-banana bag for hyponatremia Monitor BMP to follow sodium levels Monitor and optimize electrolytes. Seizure precautions. - Advance Directives Does patient have a Living Will: No Does patient have a Durable POA for Healthcare: No
[2023-02-08] MEDS ORDERED: FLUMAZENIL 0.1 MG/ML (5 mL VIAL) IV PRN (19:38)
[2023-02-08] MEDS ORDERED: HALOPERIDOL LACT 5 MG/ML INJ IM PRN (19:38)
[2023-02-08] MEDS ORDERED: ONDANSETRON 4 MG/2 ML VIAL IV PRN (19:38)
[2023-02-08 20:54] LABS: Protime INR 1.35
[2023-02-08] MEDS: LORazepam 2 MG/ML VIAL IV SCH ×2 (21:57→23:38)
[2023-02-09] MEDS: LORazepam 2 MG/ML VIAL IV PRN ×3 (00:23→07:57)
[2023-02-09] MEDS: LORazepam 2 MG/ML VIAL IV SCH ×6 (03:44→21:17)
[2023-02-09 04:40] LABS: Hematocrit 38.2 % (39.6-49.0); Lymphocytes % 16.8 % (15.3-44.8); MCV 102.3 fL (80-100); MPV 8.5 fL (7.6-11.3); Platelets 157 thou/uL (152-406); RBC Red Blood Cell Count 3.74 M/uL (4.33-5.43)
[2023-02-09 05:02] LABS: Albumin 3.7 g/dL (3.4-5.0); Bilirubin Total 1.7 mg/dL (0.2-1.0); Magnesium 1.9 mg/dL (1.6-2.4); Phosphorus 2.8 mg/dL (2.5-4.9); Potassium 3.5 mEq/L (3.5-5.1); Protein, Total 8.9 g/dL (6.4-8.2)
[2023-02-09] MEDS ORDERED: POTASSIUM 25 MEQ EFFERV TAB PO ONE (07:00)
[2023-02-09] MEDS: ENOXAPARIN 40 MG/0.4 ML SQ SCH (07:57)
[2023-02-09] MEDS ORDERED: DEXMEDETOMIDINE HCL 200 MCG in NA CHLORIDE 0.9% 98 ML IV SCH (09:00)
[2023-02-09] MEDS: FOLIC ACID 1 MG, MULTIVITAMINS INJ 10 ML, THIAMINE HCL 100 MG in NA CHLORIDE 0.9% 1,000 ML IV SCH (09:46)
[2023-02-09 10:57] LABS: Blood Morphology Comment NOT SEEN (NOT SEEN); Platelet Estimate ADEQ; White Blood Cell Scan OK (OK)
[2023-02-09] MEDS: NA CHLORIDE 0.9% IV SCH ×2 (11:39→21:16)
[2023-02-09] MEDS: DEXMEDETOMIDINE HCL IV SCH ×2 (11:39→21:16)
--- NOTE | 2023-02-09 12:43 | P.PN ---
Subjective Date of Service: 02/09/23 Chief Complaint: Suspected seizures Patient in full-blown delirium tremens today. He seems to be hallucinating and picking up or pointing to things in space. Physical Examination - Vital Signs Temperature: 98.7 F Blood Pressure: 123/66 Pulse: 73 Respirations: 21 Pulse Ox (%): 96 Assessment And Plan - Current Problems (Diagnosis) (1) Alcohol related seizure Current Visit: Yes Status: Acute (2) Chronic alcoholism Current Visit: Yes Status: Acute (3) Hyponatremia Current Visit: Yes Status: Acute (4) Elevated LFTs Current Visit: Yes Status: Acute - Plan Physical Exam General: Confused, NAD. Neck: Supple, JVD not distended Respiratory: Clear to auscultation bilaterally, Normal air movement Cardiovascular: No edema, Regular rate/rhythm, Normal S1 S2 Gastrointestinal: Normal bowel sounds, Soft and benign, Non-distended, No tenderness Musculoskeletal: No swelling Integumentary: No rashes, No cyanosis Neurological: Normal strength at 5/5 x4 extr, Cranial nerves 3-12 intact, confused, agitated. Plan Alcohol abuse/delirium tremens/alcohol related seizure Patient is in full-blown delirium tremens Pulmonary consulted Patient placed on Precedex drip Continue CIWA protocol with IV Ativan. IV hydration with banana bag No seizures since admission. Ativan IV as needed for seizures. Monitor and optimize electrolytes. Elevated LFT Secondary to chronic alcoholism. Differential AST and ALP elevation. Monitor LFT. Hyponatremia Likely related to alcoholism Stable. Continue isotonic IV fluid. Monitor BMP. DVT prophylaxis: Lovenox
[2023-02-09] MEDS: THIAMINE 200 MG/2 ML INJ IVP SCH ×2 (13:19→20:35)
--- NOTE | 2023-02-09 13:40 | EKG ---
Test Date: 2023-02-08 Test Time: 11:31:54 [employer] Analyst: JESENIA MEASUREMENT RESULTS: Intervals: Rate: 93 UT: 162 QRSD: 138 QT: 398 QTc: 494 Toyah: P: 80 UT: 162 QRS: 80 T: 53 INTERPRETIVE STATEMENTS: Normal sinus rhythm Left ventricular hypertrophy with QRS widening Abnormal ECG No previous ECG available for comparison Electronically Signed On 02-09-23 13:37:06 CDT by Ramos Freeman
[2023-02-10] MEDS: LORazepam 2 MG/ML VIAL IV SCH ×4 (02:37→15:38)
[2023-02-10 05:03] LABS: Bilirubin Total 1.7 mg/dL (0.2-1.0); Magnesium 1.8 mg/dL (1.6-2.4); Phosphorus 3.5 mg/dL (2.5-4.9); Protein, Total 7.9 g/dL (6.4-8.2)
[2023-02-10] MEDS ORDERED: MAGNESIUM SULFATE 1 gm IVPB 1 GM/100 ML BAG IV ONE (06:58)
[2023-02-10] MEDS ORDERED: POTASSIUM 25 MEQ EFFERV TAB PO ONE (06:58)
[2023-02-10] MEDS: DEXMEDETOMIDINE HCL 1,000 MCG in NA CHLORIDE 0.9% 490 ML IV SCH (07:38)
[2023-02-10] MEDS: ENOXAPARIN 40 MG/0.4 ML SQ SCH (08:05)
[2023-02-10] MEDS: FOLIC ACID 1 MG, MULTIVITAMINS INJ 10 ML, THIAMINE HCL 100 MG in NA CHLORIDE 0.9% 1,000 ML IV SCH (08:05)
[2023-02-10] MEDS: THIAMINE 200 MG/2 ML INJ IVP SCH ×2 (08:06→20:49)
--- NOTE | 2023-02-10 14:27 | P.PN ---
Subjective Date of Service: 02/10/23 Chief Complaint: Suspected seizures Patient is less agitated today on Precedex drip. No seizures. Physical Examination - Vital Signs Temperature: 99.2 F Blood Pressure: 117/64 Pulse: 76 Respirations: 21 Pulse Ox (%): 93 Assessment And Plan - Current Problems (Diagnosis) (1) Alcohol related seizure Current Visit: Yes Status: Acute (2) Chronic alcoholism Current Visit: Yes Status: Acute (3) Hyponatremia Current Visit: Yes Status: Acute (4) Elevated LFTs Current Visit: Yes Status: Acute - Plan Physical Exam General: Confused, NAD. Respiratory: Clear to auscultation bilaterally, Normal air movement Cardiovascular: No edema, Regular rate/rhythm, Normal S1 S2 Gastrointestinal: Normal bowel sounds, Soft and benign, Non-distended, No tenderness Musculoskeletal: No swelling Integumentary: No rashes, No cyanosis Neurological: Normal strength at 5/5 x4 extr, Cranial nerves 3-12 intact, confused, agitated. Plan Alcohol abuse/delirium tremens/alcohol related seizure Continue Precedex drip Continue CIWA protocol with IV Ativan. IV hydration with banana bag No seizures. Ativan IV as needed for seizures. Monitor and optimize electrolytes. Elevated LFT Stable Secondary to chronic alcoholism. Differential AST and ALP elevation. Hyponatremia Likely related to alcoholism Stable. Continue isotonic IV fluid. Monitor BMP. DVT prophylaxis: Lovenox
[2023-02-10 23:08] VITALS: BMI 20.8
[2023-02-11 05:16] LABS: Albumin 2.7 g/dL (3.4-5.0); Magnesium 1.9 mg/dL (1.6-2.4); Phosphorus 2.1 mg/dL (2.5-4.9); Potassium 3.6 mEq/L (3.5-5.1); Protein, Total 7.7 g/dL (6.4-8.2)
[2023-02-11] MEDS: DEXMEDETOMIDINE HCL 1,000 MCG in NA CHLORIDE 0.9% 490 ML IV SCH (05:25)
[2023-02-11] MEDS ORDERED: POTASSIUM CL SA 10 MEQ TAB PO ONE (08:00)
[2023-02-11] MEDS: ENOXAPARIN 40 MG/0.4 ML SQ SCH (08:10)
[2023-02-11] MEDS: POTASS/SODIUM PHOSPHATE 1 PKT POWD.PACK PO SCH ×3 (08:10→09:36)
[2023-02-11] MEDS: THIAMINE 200 MG/2 ML INJ IVP SCH ×2 (08:10→20:14)
[2023-02-11] MEDS: FOLIC ACID 1 MG, MULTIVITAMINS INJ 10 ML, THIAMINE HCL 100 MG in NA CHLORIDE 0.9% 1,000 ML IV SCH (09:36)
--- NOTE | 2023-02-11 12:58 | P.PN ---
Subjective Date of Service: 02/11/23 Chief Complaint: Suspected seizures Patient is more interactive and obeying instructions. Now on low-dose precedex. Physical Examination - Vital Signs Temperature: 98.6 F Blood Pressure: 139/86 Pulse: 86 Respirations: 16 Pulse Ox (%): 97 Assessment And Plan - Current Problems (Diagnosis) (1) Alcohol related seizure Current Visit: Yes Status: Acute (2) Chronic alcoholism Current Visit: Yes Status: Acute (3) Hyponatremia Current Visit: Yes Status: Acute (4) Elevated LFTs Current Visit: Yes Status: Acute - Plan Physical Exam General: Confused, NAD. Respiratory: Clear to auscultation bilaterally, Normal air movement Cardiovascular: No edema, Regular rate/rhythm, Normal S1 S2 Gastrointestinal: Normal bowel sounds, Soft and benign, Non-distended, No tenderness Musculoskeletal: No swelling Integumentary: No rashes, No cyanosis Neurological: Normal strength at 5/5 x4 extr, Cranial nerves 3-12 intact, confused, agitated. Plan Alcohol abuse/delirium tremens/alcohol related seizure Wean Precedex drip Continue CIWA protocol with IV Ativan. IV hydration with banana bag No seizures. Ativan IV as needed for seizures. Monitor and optimize electrolytes. Elevated LFT Stable Secondary to chronic alcoholism. Differential AST and ALP elevation. Hyponatremia Likely related to alcoholism Stable. Monitor BMP. DVT prophylaxis: Lovenox
[2023-02-12 04:34] LABS: Hematocrit 39.6 % (39.6-49.0); MCV 102.4 fL (80-100); MPV 8.6 fL (7.6-11.3); Platelets 229 thou/uL (152-406); RBC Red Blood Cell Count 3.87 M/uL (4.33-5.43)
[2023-02-12 04:53] LABS: Potassium 3.5 mEq/L (3.5-5.1)
[2023-02-12] MEDS ORDERED: THIAMINE 200 MG/2 ML INJ ONE (08:10)
[2023-02-12] MEDS ORDERED: NA CHLORIDE 0.9% 1,000 ML ONE (08:10)
[2023-02-12] MEDS: ENOXAPARIN 40 MG/0.4 ML SQ SCH (08:55)
[2023-02-12] MEDS ORDERED: THIAMINE HCL 100 MG TABLET PO SCH (09:00)
[2023-02-12] MEDS ORDERED: FOLIC ACID 1 MG TABLET PO SCH (09:00)
[2023-02-12] MEDS ORDERED: MULTIVITAMIN TAB PO SCH (09:00)
[2023-02-12] MEDS ORDERED: NA CHLORIDE 0.9% 1,000 ML IV SCH (09:00)
--- NOTE | 2023-02-12 12:24 | P.DS ---
Admission Date: 02/09/23 Discharge Date: 02/12/23 Disposition: ROUTINE DISCHARGE Discharge Condition: FAIR Reason for Admission: Suspected seizures - Problems (1) Alcohol related seizure Current Visit: Yes Status: Acute (2) Chronic alcoholism Current Visit: Yes Status: Acute (3) Hyponatremia Current Visit: Yes Status: Acute (4) Elevated LFTs Current Visit: Yes Status: Acute Brief History of Present Illness: 52-year-old gentleman with a history of chronic alcoholisms was brought to the emergency department because of suspected seizure witnessed by bystanders in a [employer] store. According to report patient had a 3-minute seizure which stopped spontaneously. EMS was called and patient brought to the emergency department. Patient admitted that he drinks beer every day, about 10-12 bottles per day. He reports tremors if he does not drink alcohol. Patient denies any history of seizures. He was alert and oriented during my examination in the ED. Blood work shows hyponatremia and elevated LFT. Patient is hospitalized for further management. Hospital Course: Patient admitted to the ICU and the following medical problems addressed: Alcohol abuse/delirium tremens/alcohol related seizure Treated with Precedex for agitation secondary to alcohol withdrawal Subsequently weaned off Precedex Also treated with CIWA protocol with IV Ativan. IV hydration with banana bag No seizures during the hospital stay Patient has no needed Ativan for agitation for 24 hours after Precedex drip was weaned off. He ambulated without assistance and tolerating diet. Tremors resolved. Elevated LFT Stable Secondary to chronic alcoholism. Differential AST and ALP elevation. Hyponatremia Likely related to alcoholism Sodium level has been stable. Vital Signs/Physical Exam: Temp Pulse Resp BP Pulse Ox 97.8 F 85 15 130/81 98 02/12/23 04:00 02/12/23 10:00 02/12/23 10:00 02/12/23 10:00 02/12/23 10:00 General: Alert, In no apparent distress, Oriented x3 HEENT: Mucous membr. moist/pink Neck: JVD not distended Respiratory: Clear to auscultation bilaterally, Normal air movement Cardiovascular: No edema, Regular rate/rhythm, Normal S1 S2 Gastrointestinal: Soft and benign, Non-distended, No tenderness Musculoskeletal: No swelling Integumentary: No cyanosis Neurological: Normal strength at 5/5 x4 extr Laboratory Data at Discharge: WBC 9.60 thou/uL (4.3-10.9) 02/12/23 04:21 Hgb 13.5 g/dL (13.6-17.9) L 02/12/23 04:21 Hct 39.6 % (39.6-49.0) 02/12/23 04:21 Plt Count 229 thou/uL (152-406) 02/12/23 04:21 PT 14.9 SECONDS (9.5-12.5) H 02/08/23 20:17 INR 1.35 02/08/23 20:17 Sodium 133 mEq/L (136-145) L 02/12/23 04:21 Potassium 3.5 mEq/L (3.5-5.1) 02/12/23 04:21 BUN 8 mg/dL (7-18) 02/12/23 04:21 Creatinine 0.60 mg/dL (0.70-1.30) L 02/12/23 04:21 Glucose 131 mg/dL (74-106) H 02/12/23 04:21 Phosphorus 2.1 mg/dL (2.5-4.9) L 02/11/23 04:21 Magnesium 1.9 mg/dL (1.6-2.4) 02/11/23 04:21 Total Bilirubin 1.0 mg/dL (0.2-1.0) 02/11/23 04:21 AST 40 U/L (15-37) H 02/11/23 04:21 ALT 29 U/L (16-61) 02/11/23 04:21 Alkaline Phosphatase 142 U/L (45-117) H 02/11/23 04:21 Home Medications: Folic Acid 1 mg PO DAILY #30 tab 02/12/23 Multivit,Ther Iron,Ca,FA & Min [Centrum Tablet*] 1 tab PO DAILY #30 tab 02/12/23 Thiamine HCl [Vitamin B-1*] 100 mg PO DAILY #30 tab 02/12/23 New Medications: Multivit,Ther Iron,Ca,FA & Min [Centrum Tablet*] 1 tab PO DAILY #30 tab Folic Acid 1 mg PO DAILY #30 tab Thiamine HCl [Vitamin B-1*] 100 mg PO DAILY #30 tab Diet: Regular Activity: Fall precautions Followup: NONE,NONE [Primary Care Provider] - Time spent managing pt's care (in minutes): 36
[2023-02-16 12:42] VITALS: BP 132/90; TEMP 97.8
[2023-02-16 12:43] VITALS: O2SAT 96
== END 2023-02-12 14:35 | disposition home or self-care (01) | DRG 101 ==
LOC: ER 11:02 → ERHOLD 16:55 → 3RD-ICU 19:31 → OBSVTOIN 02-09 10:01
PROVIDERS: ADMIT Internal Medicine; ATTEND Internal Medicine
DX: G40.89 Other seizures (principal); E87.1 Hypo-osmolality and hyponatremia; F10.231 Alcohol dependence with withdrawal delirium; R79.89 Other specified abnormal findings of blood chemistry; Z87.891 Personal history of nicotine dependence; Y90.0 Blood alcohol level of less than 20 mg/100 ml
CPT/HCPCS: 36415; 70450; 71045; 72125; 80048; 80053; 82077; 82550; 82947; 83735; 84100; 84484; 85025; 85610; 93005; 96365; 96366; 96375; 99285; G0378; J1650; J2405; J3360; J3411; J3475; J7030; J7040; J7050